=== PATIENT | male | born 1985 | race Caucasian/White ===

== ENCOUNTER 2018-11-21 23:09 | Emergency (ER) | payer BC ==
[~2018-11-21] VITALS: Ht 170.2 cm; Wt 75.8 kg
[2018-11-21 23:17] VITALS: BP 139/86
--- NOTE | 2018-11-21 23:31 | NUR ---
PT AMBULATED TO BED 01 WITH STEADY GAIT.
[2018-11-21 23:35] VITALS: BP 139/86
[2018-11-21] MEDS ORDERED: ALPRAZolam 0.5 MG TAB PO ONE (23:35)
--- NOTE | 2018-11-21 23:35 | NUR ---
33 Y/O M PRESENTED TO ED WITH C/O ANXIETY. AAOX4. SPEECH CLEAR. BEHAVIOR CALM AND COOPERATIVE. PER PT "MY MIND AND HEART JUST FEEL LIKE THEY'RE RACING. IT FEELS LIKE IT IS HARD TO BREATHE." 02 SATURTION AT 98%. BILATERAL LUNG BAE CLEAR. HR AT 80, RRR. BED IN LOWEST POSTION. WILL CONTINUE TO MONITOR.
--- NOTE | 2018-11-22 00:14 | NUR ---
REPORT GIVEN TO PRIMARY NURSE. PT IN STABLE CONDITION.
--- NOTE | 2018-11-22 00:45 | NUR ---
DPatient discharged with v/s stable. Written and verbal after care instructions given and explained. Patient alert, oriented and verbalized understanding of instructions. Ambulatory with steady gait. All questions addressed prior to discharge. ID band removed. Patient advised to follow up with PMD. Rx of Ativan given. Patient educated on indication of medication including possible reaction and side effects. Opportunity to ask questions provided and answered.
== END 2018-11-22 00:45 | disposition home or self-care (01) ==
LOC: MED 23:09
DX: F41.9 Anxiety disorder, unspecified (principal)
CPT/HCPCS: 99284